=== PATIENT | female | born 1945 | race African-American/Black ===

== ENCOUNTER → 2017-05-03 08:25 | Outpatient (CLI) | payer MEDICARE, BC ==
[2016-04-23 10:03] VITALS: BMI 31.8
[~2017-05-03 08:25] MED LIST: ALEVE220 MG PO; DEMEROL50 MG PO; DITROPAN X5 MG/BOTTL PO; DYAZIDE 37.5/251 CAP PO; ELIQUIS2.5 MG PO; LEVAQUIN250 MG PO; MUPIROCIN22 GM TOPICAL; PERCOCET 10/3251 TA1 PO; ZESTRIL40 MG PO
== END | disposition home or self-care (01) ==
LOC: D.NM 08:25
DX: M25.561 Pain in right knee (principal)

== ENCOUNTER → 2018-12-23 17:12 | Outpatient (CLI) | payer MEDICARE, BC ==
[2016-04-23 10:03] VITALS: BMI 31.8
== END | disposition home or self-care (01) ==
LOC: D.LABREF 17:12
PROVIDERS: ATTEND Orthopaedic Surgery
DX: M25.561 Pain in right knee (principal); Z11.8 Encounter for screening for other infectious and parasitic diseases

== ENCOUNTER 2018-12-24 09:28 | Inpatient (IN) | payer MEDICARE, OTHER ==
[~2018-12-24] VITALS: Ht 167.6 cm; Wt 90.5 kg
[~2018-12-24 09:28] MED LIST changes: +ZESTRIL20 MG PO; -ZESTRIL40 MG PO
[2019-02-03] MEDS ORDERED: NORVASC5 MG PO (15:02)
[2019-02-04 11:24] LABS: APPEARANCE CLEAR (CLEAR); BILIRUBIN NEGATIVE (NEGATIVE); COLOR YELLOW (YELLOW); GLUCOSE NEGATIVE (NEGATIVE); KETONE NEGATIVE (NEGATIVE); NITRITE NEGATIVE (NEGATIVE); PROTEIN NEGATIVE (NEGATIVE); SPECIFIC GRAVITY 1.005 (1.005-1.020); UROBILINOGEN NORMAL (NORMAL)
[2019-02-04 11:26] LABS: BACTERIA MODERATE /hpf (NONE SEEN); EPITHELIAL CELLS OCC /hpf (0-5); MUCUS <1+ /lpf (NONE SEEN); WHITE CELLS - URINE OCC /hpf (0-5)
[2019-02-04 11:33] LABS: BASOPHILS 0.3 % (0-2); EOSINOPHILS 0.8 % (0-7); HEMATOCRIT 41.8 % (36.0-48.0); HEMOGLOBIN 13.9 g/dL (12-16); IMMATURE GRANULOCYTES 0.5 % (0-5); LYMPHOCYTES 32.7 % (15-50); MCH 30.5 pg (26.0-34.0); MCHC 33.3 g/dL (31.0-37.0); MCV 91.7 fL (80.0-100.0); MEAN PLATELET VOLUME 9.9 fL (7.4-10.4); MONOCYTES 9.2 % (2-11); NEUTROPHILS 56.5 % (40-80); PLATELET COUNT 226 10x3/uL (130-400); RBC 4.56 10x6/uL (4.00-5.40); RDW 12.9 % (11.5-14.5); WBC 6.1 10x3/uL (4.8-10.8)
[2019-02-04 11:44] LABS: ANION GAP 9.7 mmol/L (8-16); CALCIUM 10.4 mg/dL (8.5-10.1); CARBON DIOXIDE 30.9 mmol/L (21.0-32.0); CREATININE - SERUM 1.1 mg/dL (0.6-1.3); POTASSIUM - SERUM 3.6 mmol/L (3.5-5.1)
[2019-02-04 11:52] LABS: APTT 28.9 SECONDS (22.8-39.4); INR 0.99 (0.85-1.17); PROTIME 12.6 SECONDS (11.6-15.0)
[2019-02-09 14:35] VITALS: BP 144/82; BMI 323.6
--- NOTE | 2019-02-09 18:19 | NUR ---
REPORT FROM JONATHAN GUTHRIE. PATIENT CARE ASSUMED AT THIS TIME.
--- NOTE | 2019-02-09 19:00 | NUR ---
ADMITED TO ROOM FROM RECOVERY, ALERT AND ORIENTIATED, DORINA WRAP DRESSING INTACT NO DRAINAGE NOTED, ORIENTIATED TO ROOM, SEE ADMISSION ASSESSMENT, CALL LIGHT IN REACH
[2019-02-09 19:01] VITALS: BP 92/57
--- NOTE | 2019-02-09 19:04 | NUR ---
RECEIVBED TO ROOM 2209 VIA BED FROM PACU. A/O X3. DRESSING TO RIGHT KNEE DRY AND INTACT. FAMILY IN ROOM.
[2019-02-09 19:12] VITALS: BP 97/56
[2019-02-09 19:41] VITALS: BP 94/57
[2019-02-09 20:30] VITALS: BP 110/68
[2019-02-09 21:04] VITALS: BP 97/56
[2019-02-10] VITALS (7 sets, daily range): BP systolic 92–114; BP diastolic 51–69; Ht 167.6 cm; Wt 90.5 kg
--- NOTE | 2019-02-10 03:00 | NUR ---
IN AND OUT CATH DONE 800 CC URINE RETURNED, TOLERATED WELL.
[2019-02-10 05:56] LABS: HEMOGLOBIN 12.9 g/dL (12-16); MCH 29.9 pg (26.0-34.0); MCHC 32.3 g/dL (31.0-37.0); MCV 92.8 fL (80.0-100.0); MEAN PLATELET VOLUME 10.6 fL (7.4-10.4); RBC 4.31 10x6/uL (4.00-5.40); RDW 12.7 % (11.5-14.5)
--- NOTE | 2019-02-10 07:58 | NUR ---
AWAKE AND ALERT. ORIENTED X3. NO C/O AT THIS TIME. LUNGS ARE CLEAR BILATERALLY, NO COUGH NOTED. SKIN IS INTACT WITHOUT REDNESS EXCPET INCISION TO RIGHT KNEE WHICH HAS A DRY INTACT DRESSING IN PLACE. SL TO RIGHT FOREARM IS PATETN WITHOUT REDNESS AT INSERTION SITE. DENIES NEEDS. HAVEING SOME INCONTINENCE WITH COUGH AND DEEP BREATHING.
--- NOTE | 2019-02-10 10:04 | NUR ---
UP IN CHAIR AT BEDSIDE. REQUESTED AND GIVEN ONE HYDROCODONE PO FOR C/O LEFT KNEE PAIN LEVEL 7. WILL MONITOR.
--- NOTE | 2019-02-10 11:46 | OP ---
PATIENT NAME: MARCIAL FRAGOSO MEDICAL RECORD: [id number] :[birth year] LOCATION:D.MS [facility] ADMISSION DATE:02/09/19 SURGEON: COREY KWOK MD DATE OF OPERATION: 02/09/2019 PREOPERATIVE DIAGNOSIS: Painful right total knee arthroplasty. POSTOPERATIVE DIAGNOSIS: Painful right total knee arthroplasty. PROCEDURE: Revision total knee arthroplasty. SURGEON: Corey Kwok MD FRAME REPAIRER: Yobani Topete APN INTRAOPERATIVE COMPLICATIONS: None. SUMMARY OF PATHOLOGIC FINDINGS: The knee did seem to be well fixed. There was some questionable lucency about the tibial component. This was placed in 2015. OPERATIVE SUMMARY IN DETAIL: After obtaining the appropriate preoperative orthopedic surgery consent as well as anesthetic consultation, evaluation and clearance, the patient was brought to the operating room and placed on the operating table in supine position. After adequate general laryngeal mask airway was administered, tourniquet was placed on the proximal aspect of the right lower extremity. Right lower extremity was then prepped and draped in routine sterile fashion. The leg was elevated and exsanguinated, tourniquet was inflated to 350 mmHg. Midline incision was taken to the previous incision, taken down for paramedian arthrotomy. The patella was subluxed to the side. The femur was then flexed. Polyethylene was removed with little degree of difficulty. The femur was checked and found to be in overall good condition when it was removed. No bone was taken from the distal and there was no evidence whatsoever of infection. Attention then turned to the proximal tibia. It likewise was removed relatively easy using a saw as well as flexible osteotomes from the greater revision. The bone ends exposed. Serial and sequential reaming was done at the proximal femur. A size 18 stem fluted, cuts were made along with the box cut. Appropriate measurements were taken and the trial corresponding to the final implants was placed on the distal femur. It fit nicely, anterior, posterior, laterally, as well as intramedullary. The proximal tibia was exposed and likewise serial and sequential reaming were done for proximal tibia. Stem 17 x 100, size 4 universal tibial baseplate was placed. Please note that either femoral or tibial stem needed offset. Trial was put into place and it was felt that a size 16 mm was the most appropriate for stabilization. Trial implants were taken out. Copious lavage irrigation was done through ridding the knee cavity of all debris. The implants were built on the back table. The femur and tibia were inserted into place. All excess cement was removed and the polyethylene was put into place. The knee was taken through a range of motion and found to have slight patellar subluxation lateral release was performed and the patella tracked nicely. The knee was then insufflated with a gram of vancomycin, a gram and tobramycin. Paramedian arthrotomy was closed by Yobani Planzo with #2-0 Ethibond in irards-jv-asruh fashion followed by #1 Vicryl, 2-0 Vicryl, and skin amada. Sterile dressings were applied. The tourniquet was deflated. The patient was awakened, taken to recovery in stable condition. All final needle and sponge counts were correct. OPERATIVE REPORT [id number] MARCIAL FRAGOSO TRANSINT:[id number] Voice Confirmation ID: [id number] DOCUMENT ID: [id number] RISSA MCCORMICK, COREY FERREIRA at 1146 CC: [id number] DICTATION DATE: 02/09/19 171 APARTMENT MAINTENANCE TECHNICIAN: 02/09/191950 ADM IN [facility] [address] [place] [address]
[2019-02-10 17:02] LABS: HEMATOCRIT 32.8 % (36.0-48.0); HEMOGLOBIN 10.6 g/dL (12-16)
--- NOTE | 2019-02-10 19:22 | NUR ---
BP IS SLOWLY COMMING UP. NO CHANGES NOTED. DENEIES NEEDS.
--- NOTE | 2019-02-10 20:00 | NUR ---
ALERT RRESTING IN BED DENIES PAIN, DORINA WRAP DRESSING INTACT TO RIGH TKNEE NO DRAINAGE NOTED, SEE SHIFT ASSESSMENT, CALL LIGHT IN REACH
[2019-02-11 02:13] VITALS: BP 129/70
[2019-02-11 04:50] VITALS: BP 128/69
[2019-02-11 05:27] LABS: HEMATOCRIT 30.6 % (36.0-48.0); MCH 29.6 pg (26.0-34.0); MCHC 32.7 g/dL (31.0-37.0); MEAN PLATELET VOLUME 10.6 fL (7.4-10.4); RDW 12.9 % (11.5-14.5)
[2019-02-11 05:45] LABS: MCV 90.5 fL (80.0-100.0); RBC 3.38 10x6/uL (4.00-5.40)
[2019-02-11 08:48] VITALS: BP 144/84
--- NOTE | 2019-02-11 09:41 | MORECARE ---
CASE MANAGEMENT DISCHARGE SUMMARY PATIENT: MARCIAL FRAGOSO UNIT: [id number] ADM DATE: 02/09/19 AGE: 73 : [birth year] SEX: F ROOM/BED: D.4451 AUTHOR: DALIA AGRAWAL PHYSICIAN: REFERRING PHYSICIAN: COREY KWOK MD DATE OF SERVICE: 02/11/19 Discharge Plan Patient Name: MARCIAL FRAGOSO Facility: [facility]:[place] : 1945 Planned Disposition: Home with Home Health Anticipated Discharge Date: Discharge Date: Expected LOS: Initial Reviewer: [email or web address] Initial Review Date: 02/09/2019 Generated: 02/11/19 10:40 am Comments DCP- Discharge Planning Updated by [email or web address]: Katey Hopper on 02/11/19 8:[address] Patient Name: MARCIAL FRAGOSO Admission Status: Elective Accout number: [id number] Admission Date: 02-09-2019 : 1945 Admission Diagnosis: Attending: COREY KWOK Current LOS: 2 Anticipated DC Date: Planned Disposition: Home with Home Health Primary Insurance: MEDICARE A & B Discharge Planning Comments: CM met with patient to complete initial dc planning assessment. CM educated patient on the CM role and verbal consent given by patient to complete assessment. Patient lives at home where she is independent with her care at home. At discharge patient plans to return home and feels this is a safe discharge. Her daughter will be her driver license technician home and will be staying with her for a while during her recovery. CM discussed availability of home health, rehab services, and medical equipment. She has a walker, BSC, and shower chair at home. She would like home health and KERRY signed with [facility] & placed in chart. IMM also explained and placed in chart. Patient denied known discharge needs at this time. CM will continue to follow and will assist as needed with dc plans/needs. Sourcing Assistant: Katey Hopper DCPIA - Discharge Planning Initial Assessment Updated by [email or web address]: Katey Hopper on 02/11/19 9:38 am * Is the patient Alert and Oriented? Yes * How many steps to enter\exit or inside your home? ramp * PCP Álvaro * [facility] in [place] * Preadmission Environment Home Alone * ADLs Independent * Equipment Bedside Commode Rolling Walker Walker * List name and contact numbers for known caregivers / representatives who currently or will assist patient after discharge: Micheline Jospeh [phone] * Verbal permission to speak to the caregivers and representatives has been obtained from the patient. N/A * Community resources currently utilized None * Additional services required to return to the preadmission environment? Yes * Can the patient safely return to the preadmission environment? Yes * Has this patient been hospitalized within the prior 30 days at any hospital? No Patient Name: MARCIAL FRAGOSO Page [phone] at 0941 All edits/amendments must be made on the electronic document DICTATION DATE: 02/11/19939 DREDGE DECKHAND: YAMILKA 02/11/19939 RPT#: [id number] DC DATE: STATUS: ADM IN [facility] [address] [place] [address] END OF REPORT
[2019-02-11 11:50] LABS: APPEARANCE CLEAR (CLEAR); COLOR STRAW (YELLOW)
[2019-02-11 11:51] LABS: BACTERIA FEW /hpf (NONE SEEN); BILIRUBIN NEGATIVE (NEGATIVE); EPITHELIAL CELLS 0-5 /hpf (0-5); GLUCOSE NEGATIVE (NEGATIVE); KETONE NEGATIVE (NEGATIVE); MUCUS <1+ /lpf (NONE SEEN); NITRITE NEGATIVE (NEGATIVE); PROTEIN NEGATIVE (NEGATIVE); RED CELLS - URINE OCC /hpf (0-5); UROBILINOGEN NORMAL (NORMAL)
[2019-02-11 12:23] VITALS: BP 136/84
--- NOTE | 2019-02-11 13:49 | MORECARE ---
CASE MANAGEMENT DISCHARGE SUMMARY PATIENT: MARCIAL FRAGOSO UNIT: [id number] ADM DATE: 02/09/19 AGE: 73 : 47 SEX: F ROOM/BED: D.3831 AUTHOR: DALIA AGRAWAL PHYSICIAN: REFERRING PHYSICIAN: COREY KWOK MD DATE OF SERVICE: 02/11/19 Discharge Plan Patient Name: MARCIAL FRAGOSO Facility: [facility]:[place] : 1945 Planned Disposition: Home with Home Health Anticipated Discharge Date: Discharge Date: Expected LOS: Initial Reviewer: [email or web address] Initial Review Date: 02/09/2019 Generated: 02/11/19 2:49 pm Comments DCP- Discharge Planning Updated by [email or web address]: Katey Hopper on 02/11/19 8:[address] Patient Name: MARCIAL FRAGOSO Admission Status: Elective Accout number: [id number] Admission Date: 02-09-2019 : 1945 Admission Diagnosis: Attending: COREY KWOK Current LOS: 2 Anticipated DC Date: Planned Disposition: Home with Home Health Primary Insurance: MEDICARE A & B Discharge Planning Comments: CM met with patient to complete initial dc planning assessment. CM educated patient on the CM role and verbal consent given by patient to complete assessment. Patient lives at home where she is independent with her care at home. At discharge patient plans to return home and feels this is a safe discharge. Her daughter will be her jinriksha driver home and will be staying with her for a while during her recovery. CM discussed availability of home health, rehab services, and medical equipment. She has a walker, BSC, and shower chair at home. She would like home health and KERRY signed with [facility] & placed in chart. IMM also explained and placed in chart. Patient denied known discharge needs at this time. CM will continue to follow and will assist as needed with dc plans/needs. Buttonhole Machine Operator: Katey Hopper DCPIA - Discharge Planning Initial Assessment Updated by [email or web address]: Katey Hopper on 02/11/19 9:38 am * Is the patient Alert and Oriented? Yes * How many steps to enter\exit or inside your home? ramp * PCP Álvaro * Pharm[facility] in [place] * Preadmission Environment Home Alone * ADLs Independent * Equipment Bedside Commode Rolling Walker Walker * List name and contact numbers for known caregivers / representatives who currently or will assist patient after discharge: Micheline Joseph [phone] * Verbal permission to speak to the caregivers and representatives has been obtained from the patient. N/A * Community resources currently utilized None * Additional services required to return to the preadmission environment? Yes * Can the patient safely return to the preadmission environment? Yes * Has this patient been hospitalized within the prior 30 days at any hospital? No External Providers External Provider: [facility] Next Contact Date: Service Request Date: Service Type: Resolution: Reviewer: Comments: Coverage Notice Reviewer: [email or web address] Sarah Hopper Notice Issued Date-Time: 02/11/2019 8:00 Notice Type: IM Discharge Notice Notice Delivered To: Patient Relationship to Patient: Substation Wireman Name: Delivery Method: HAND - Hand Delivered Flor Days: Prior Verbal Notification: Recipient Understood Notice: Yes Recipient Signature: Yes Med Rec Note Co-signed by Attending: Coverage Notice Comment: Reviewer: [id number] Hopper Notice Issued Date-Time: 02/11/2019 8:00 Notice Type: Patient Choice Letter Notice Delivered To: Patient Relationship to Patient: Substation Wireman Name: Delivery Method: - Flor Days: Prior Verbal Notification: Recipient Understood Notice: Yes Recipient Signature: Yes Med Rec Note Co-signed by Attending: Coverage Notice Comment: Last DP export: 02/11/19 8:40 am Patient Name: MARCIAL FRAGOSO Page [phone] at 1349 All edits/amendments must be made on the electronic document DICTATION DATE: 02/11/19 1349 BILINGUAL INTERPRETER: YAMILKA 02/11/19 1349 RPT#: [id number] DC DATE: STATUS: ADM IN [facility] [address] [place] [address] END OF REPORT
[2019-02-11 16:45] VITALS: BP 116/94
--- NOTE | 2019-02-11 16:59 | NUR ---
PATIENT RESTING IN CHAIR. DENIES NEEDS. CL AND PHONE IN REACH. WCTM
--- NOTE | 2019-02-11 20:00 | NUR ---
ASSESSMENT PER FLOWSHEET. DRESSING TO RT KNEE C/D/I. IV PATENT RT FOREARM OF 1/2NS AT 30CC'S/HR. SITE CLEAR. O2 ON 2L/M PER NC. NO DISTESS. SITTING UP IN RECLINER CHAIR.
[2019-02-11 21:27] VITALS: BP 119/75
--- NOTE | 2019-02-11 22:00 | NUR ---
TRANSFERED TO BED SR UP X2 CALL LIGHT WITHIN REACH.
--- NOTE | 2019-02-12 | NUR ---
REMAINS AWAKE WATCHING TV. DENIES NEEDS AT THIS TIME.
--- NOTE | 2019-02-12 01:18 | NUR ---
C/O PAIN INCISIONAL AREA. RATES PAIN LEVEL #7. NORCO 10MG TAB ONE PO GIVEN FOR PAIN CONTROL.
[2019-02-12 02:05] VITALS: BP 139/85
[2019-02-12 06:17] VITALS: BP 124/60
[2019-02-12] MEDS ORDERED: ELIQUIS2.5 MG PO (07:52)
[2019-02-12] MEDS ORDERED: HYDROCODON-ACE1 EA10 PO (07:53)
[2019-02-12] MEDS ORDERED: LEVOFLOXACIN500 MG PO (07:54)
[2019-02-12 10:08] VITALS: BP 103/70
--- NOTE | 2019-02-12 12:36 | NUR ---
PATIENT WAS ASKED TWICE BY OPHELIA NARAYANAN IF SHE WANTED A SHOWER. SHE REFUSED BOTH TIMES. PATIENT SAID SHE WAS WAITING ON DISCHARGE PAPERWORK AND TO GO HOME.
--- NOTE | 2019-02-12 13:08 | MORECARE ---
CASE MANAGEMENT DISCHARGE SUMMARY PATIENT: MARCIAL FRAGOSO UNIT: [id number] ADM DATE: 02/09/19 AGE: 73 : [birth year] SEX: F ROOM/BED: D.6539 AUTHOR: DALIA AGRAWAL PHYSICIAN: REFERRING PHYSICIAN: COREY KWOK MD DATE OF SERVICE: 02/12/19 Discharge Plan Patient Name: MARCIAL FRAGOSO Facility: [facility]:[place] : 1945 Planned Disposition: Home with Home Health Anticipated Discharge Date: 02/12/19 Discharge Date: Expected LOS: 3 Initial Reviewer: [email or web address] Initial Review Date: 02/09/2019 Generated: 02/12/19 2:08 pm Comments DCP- Discharge Planning Updated by [email or web address]: Katey Hopper on 02/11/19 8:[address] Patient Name: MARCIAL FRAGOSO Admission Status: Elective Accout number: [id number] Admission Date: 02-09-2019 : 1945 Admission Diagnosis: Attending: COREY KWOK Current LOS: 2 Anticipated DC Date: Planned Disposition: Home with Home Health Primary Insurance: MEDICARE A & B Discharge Planning Comments: CM met with patient to complete initial dc planning assessment. CM educated patient on the CM role and verbal consent given by patient to complete assessment. Patient lives at home where she is independent with her care at home. At discharge patient plans to return home and feels this is a safe discharge. Her daughter will be her dedicated local truck driver home and will be staying with her for a while during her recovery. CM discussed availability of home health, rehab services, and medical equipment. She has a walker, BSC, and shower chair at home. She would like home health and KERRY signed with [facility] & placed in chart. IMM also explained and placed in chart. Patient denied known discharge needs at this time. CM will continue to follow and will assist as needed with dc plans/needs. Fire Loss Prevention Engineer: Katey Hopper DCPIA - Discharge Planning Initial Assessment Updated by [email or web address]: Katey Hopper on 02/11/19 9:38 am * Is the patient Alert and Oriented? Yes * How many steps to enter\exit or inside your home? ramp * PCP Álvaro * Pharm[facility] in [place] * Preadmission Environment Home Alone * ADLs Independent * Equipment Bedside Commode Rolling Walker Walker * List name and contact numbers for known caregivers / representatives who currently or will assist patient after discharge: Micheline Joseph [phone] * Verbal permission to speak to the caregivers and representatives has been obtained from the patient. N/A * Community resources currently utilized None * Additional services required to return to the preadmission environment? Yes * Can the patient safely return to the preadmission environment? Yes * Has this patient been hospitalized within the prior 30 days at any hospital? No Coverage Notice Reviewer: [id number] Sarah Hopper Notice Issued Date-Time: 02/11/2019 8:00 Notice Type: IM Discharge Notice Notice Delivered To: Patient Relationship to Patient: An/Syq 13 Nav/C2 Operator Name: Delivery Method: HAND - Hand Delivered Flor Days: Prior Verbal Notification: Recipient Understood Notice: Yes Recipient Signature: Yes Med Rec Note Co-signed by Attending: Coverage Notice Comment: Reviewer: [id number] Sarah Hopper Notice Issued Date-Time: 02/11/2019 8:00 Notice Type: Patient Choice Letter Notice Delivered To: Patient Relationship to Patient: An/Syq 13 Nav/C2 Operator Name: Delivery Method: - Flor Days: Prior Verbal Notification: Recipient Understood Notice: Yes Recipient Signature: Yes Med Rec Note Co-signed by Attending: Coverage Notice Comment: Last DP export: 02/11/19 12:49 pm Patient Name: MARCIAL FRAGOSO Page [phone] at 1308 All edits/amendments must be made on the electronic document DICTATION DATE: 02/12/19 1308 INTEGRATION CONSULTANT: YAMILKA 02/12/19 1308 RPT#: [id number] DC DATE: STATUS: ADM IN [facility] [address] [place] [address] END OF REPORT
--- NOTE | 2019-02-12 13:11 | NUR ---
IV THERAPY DC'ED WITH TIP INTACT. PATIENT AND FAMILY VERBALIZED UNDERSTANDING OF DISCHARGE INSTRUCTIONS. PATIENT WAITING ON A WALKER FROM [facility] BEFORE LEAVING. DRESSING CHANGED WITH EXTRA GIVEN.
--- NOTE | 2019-02-12 13:15 | NUR ---
OT NOTE: PT PERFORMED WELL TODAY; AMB TO BATHROOM WITH RW AND MIN ASSIST; TOILETING WITH MIN ASSIST; SINK HYGIENE WITH MIN ASSIST; REQUIRED MOD ASSIST FOR SOCKS AND SHOES; REMAINDER OF DRESSING WITH SET UP. BABAR CAPPS, OTR/L
--- NOTE | 2019-02-12 13:17 | MORECARE ---
CASE MANAGEMENT DISCHARGE SUMMARY PATIENT: MARCIAL FRAGOSO UNIT: [id number] ADM DATE: 02/09/19 AGE: 73 : [birth year] SEX: F ROOM/BED: D.2201 AUTHOR: TANJA,DALIA PHYSICIAN: REFERRING PHYSICIAN: COREY KWOK MD DATE OF SERVICE: 02/12/19 Discharge Plan Patient Name: MARCIAL FRAGOSO Facility: [facility]:[place] : 1945 Planned Disposition: Home with Home Health Anticipated Discharge Date: 02/12/19 Discharge Date: Expected LOS: 3 Initial Reviewer: [email or web address] Initial Review Date: 02/09/2019 Generated: 02/12/19 2:17 pm Comments DCP- Discharge Planning Updated by [id number]: Frannie Henning on 02/12/19 12:[address] LATE ENTRY 0910 PHYSICAL THERAPY ADVISED CM THAT THE PATIENT'S WALKER IS NOT SAFE. HE ADVISED THE PATIENT THAT A NEW WALKER SHOULD BE OBTAINED. CM SPOKE WITH THE PATIENT. SHE STATED THE WALKER HAD BEEN HER 'S. SHE IS IN AGREEMENT W/ ORDERING A NEW ONE. MD ORDER OBTAINED. SHE WANTED TO USE THE DME PROVIDER NEAR HER HOME. SHE ASK CM TO CALL THE HOME HEALTH PROVIDER AND ASK THE NAME. RICARDO CALLED [facility] IN [place]. THE NURSE STATED SERVICE SECRETARY HAD CLOSED. SHE ADVISED [facility] IN [place] WAS CLOSEST PROVIDER. CM ADVISED THE PATIENT SHE AGREED W/ [facility] SERVICE SECRETARY HAD CLOSED. POC FORM OBTAINED FOR [facility]. [facility] [place] SHE WOULD NEED IT TO ENTER HER HOME.FAXED REFERRAL. [facility] CALLED AND SPOKE WITH THE PATIENT. AWAIT DELIVERY. WILL FAX [facility] THE DISCHARGE SUMMARY. DCP- Discharge Planning Updated by [id number]: Ktaey Hopper on 02/11/19 8:[address] Patient Name: MARCIAL FRAGOSO Admission Status: Elective Accout number: [id number] Admission Date: 02-09-2019 : 1945 Admission Diagnosis: Attending: COREY KWOK Current LOS: 2 Anticipated DC Date: Planned Disposition: Home with Home Health Primary Insurance: MEDICARE A & B Discharge Planning Comments: CM met with patient to complete initial dc planning assessment. CM educated patient on the CM role and verbal consent given by patient to complete assessment. Patient lives at home where she is independent with her care at home. At discharge patient plans to return home and feels this is a safe discharge. Her daughter will be her package delivery driver home and will be staying with her for a while during her recovery. CM discussed availability of home health, rehab services, and medical equipment. She has a walker, BSC, and shower chair at home. She would like home health and KERRY signed with [facility] & placed in chart. IMM also explained and placed in chart. Patient denied known discharge needs at this time. CM will continue to follow and will assist as needed with dc plans/needs. Medical Research Associate: Katey Hopper DCPIA - Discharge Planning Initial Assessment Updated by [email or web address]: Katey Hopper on 02/11/19 9:38 am * Is the patient Alert and Oriented? Yes * How many steps to enter\exit or inside your home? ramp * PCP Álvaro * Pharmacy [facility] in [place] * Preadmission Environment Home Alone * ADLs Independent * Equipment Bedside Commode Rolling Walker Walker * List name and contact numbers for known caregivers / representatives who currently or will assist patient after discharge: Micheline Joseph [phone] * Verbal permission to speak to the caregivers and representatives has been obtained from the patient. N/A * Community resources currently utilized None * Additional services required to return to the preadmission environment? Yes * Can the patient safely return to the preadmission environment? Yes * Has this patient been hospitalized within the prior 30 days at any hospital? No Coverage Notice Reviewer: [id number] Sarah Hopper Notice Issued Date-Time: 02/11/2019 8:00 Notice Type: IM Discharge Notice Notice Delivered To: Patient Relationship to Patient: Occupational Psychologist Name: Delivery Method: HAND - Hand Delivered Flor Days: Prior Verbal Notification: Recipient Understood Notice: Yes Recipient Signature: Yes Med Rec Note Co-signed by Attending: Coverage Notice Comment: Reviewer: [id number] Sarah Hopper Notice Issued Date-Time: 02/11/2019 8:00 Notice Type: Patient Choice Letter Notice Delivered To: Patient Relationship to Patient: Occupational Psychologist Name: Delivery Method: - Flor Days: Prior Verbal Notification: Recipient Understood Notice: Yes Recipient Signature: Yes Med Rec Note Co-signed by Attending: Coverage Notice Comment: Last DP export: 02/12/19 12:08 pm Patient Name: MARCIAL FRAGOSO Page 28902 at 1317 All edits/amendments must be made on the electronic document DICTATION DATE: 02/12/191315 PLANNING INTERN: YAMILKA 02/12/191315 RPT#: [id number] DC DATE: STATUS: ADM IN [facility] [address] [place] [address] END OF REPORT
--- NOTE | 2019-02-12 16:24 | NUR ---
OT NOTE: PT COMPLETED ADL MOB AND EOB SITTING WITH CGA. PT COMPLETED SIMPLE HYGIENE TASKS WITH MIN A. THANK YOU, SHAHID DUMONT
--- NOTE | 2019-02-12 16:54 | MORECARE ---
CASE MANAGEMENT DISCHARGE SUMMARY PATIENT: MARCIAL FRAGOSO UNIT: [id number] ADM DATE: 02/09/19 AGE: 73 : 49 SEX: F ROOM/BED: D.8047 AUTHOR: TANJA,DOC PHYSICIAN: REFERRING PHYSICIAN: COREY KWOK MD DATE OF SERVICE: 02/12/19 Discharge Plan Patient Name: MARCIAL FRAGOSO Facility: [facility]:[place] : 1945 Planned Disposition: Home with Home Health Anticipated Discharge Date: 02/12/19 Discharge Date: 02/12/2019 Expected LOS: 3 Initial Reviewer: [email or web address] Initial Review Date: 02/09/2019 Generated: 02/12/19 5:54 pm Comments DCP- Discharge Planning Updated by [email or web address]: Frannie Henning on 02/12/19 3:[address] DISCHARGE ORDERS, DISCHARGE INSTRUCTIONS AND DISCHARGE MED LIST FAXED TO [facility]. DCP- Discharge Planning Updated by [email or web address]: Frannie Henning on 02/12/19 12:[address] LATE ENTRY 0910 PHYSICAL THERAPY ADVISED CM THAT THE PATIENT'S WALKER IS NOT SAFE. HE ADVISED THE PATIENT THAT A NEW WALKER SHOULD BE OBTAINED. RICARDO SPOKE WITH THE PATIENT. SHE STATED THE WALKER HAD BEEN HER 'S. SHE IS IN AGREEMENT W/ ORDERING A NEW ONE. MD ORDER OBTAINED. SHE WANTED TO USE THE DME PROVIDER NEAR HER HOME. SHE ASK CM TO CALL THE HOME HEALTH PROVIDER AND ASK THE NAME. RICARDO CALLED [facility] IN [place]. THE NURSE STATED [facility] HAD CLOSED. SHE ADVISED [facility] IN [place] WAS CLOSEST PROVIDER. RICARDO ADVISED THE PATIENT SHE AGREED W/ [facility] [facility] HAD CLOSED. POC FORM OBTAINED FOR [facility]. TC TO [facility] IN [place] SHE WOULD NEED IT TO ENTER HER HOME.FAXED REFERRAL. [facility] CALLED AND SPOKE WITH THE PATIENT. AWAIT DELIVERY. WILL FAX [facility] THE DISCHARGE SUMMARY. DCP- Discharge Planning Updated by [id number]: Katey Hopper on 02/11/19 8:[address] Patient Name: MARCIAL FRAGOSO Admission Status: Elective Accout number: [id number] Admission Date: 02-09-2019 : 1945 Admission Diagnosis: Attending: COREY KWOK Current LOS: 2 Anticipated DC Date: Planned Disposition: Home with Home Health Primary Insurance: MEDICARE A & B Discharge Planning Comments: CM met with patient to complete initial dc planning assessment. CM educated patient on the CM role and verbal consent given by patient to complete assessment. Patient lives at home where she is independent with her care at home. At discharge patient plans to return home and feels this is a safe discharge. Her daughter will be her stunt driver home and will be staying with her for a while during her recovery. CM discussed availability of home health, rehab services, and medical equipment. She has a walker, BSC, and shower chair at home. She would like home health and KERRY signed with [facility] & placed in chart. IMM also explained and placed in chart. Patient denied known discharge needs at this time. CM will continue to follow and will assist as needed with dc plans/needs. Community Development Officer: Katey Hopper DCPIA - Discharge Planning Initial Assessment Updated by [email or web address]: Katey Hopper on 02/11/19 9:38 am * Is the patient Alert and Oriented? Yes * How many steps to enter\exit or inside your home? ramp * PCP Álvaro * Pharmacy [facility] in [place] * Preadmission Environment Home Alone * ADLs Independent * Equipment Bedside Commode Rolling Walker Walker * List name and contact numbers for known caregivers / representatives who currently or will assist patient after discharge: Micheline Joseph [phone] * Verbal permission to speak to the caregivers and representatives has been obtained from the patient. N/A * Community resources currently utilized None * Additional services required to return to the preadmission environment? Yes * Can the patient safely return to the preadmission environment? Yes * Has this patient been hospitalized within the prior 30 days at any hospital? No Coverage Notice Reviewer: [id number] Sarah Hopper Notice Issued Date-Time: 02/11/2019 8:00 Notice Type: IM Discharge Notice Notice Delivered To: Patient Relationship to Patient: Landscape Contractor Name: Delivery Method: HAND - Hand Delivered Flor Days: Prior Verbal Notification: Recipient Understood Notice: Yes Recipient Signature: Yes Med Rec Note Co-signed by Attending: Coverage Notice Comment: Reviewer: [email or web address] Sarah Hopper Notice Issued Date-Time: 02/11/2019 8:00 Notice Type: Patient Choice Letter Notice Delivered To: Patient Relationship to Patient: Landscape Contractor Name: Delivery Method: - Flor Days: Prior Verbal Notification: Recipient Understood Notice: Yes Recipient Signature: Yes Med Rec Note Co-signed by Attending: Coverage Notice Comment: Last DP export: 02/12/19 12:17 pm Patient Name: MARCIAL FRAGOSO Page [id number] at [id number] All edits/amendments must be made on the electronic document DICTATION DATE: 02/12/191652 LOTTERY CLERK: YAMILKA 02/12/191652 RPT#: [id number] DC DATE:02/12/19 STATUS: DIS [facility] [address] [place] [address] END OF REPORT
== END 2019-02-12 14:10 | disposition home health service (06) | DRG 468 ==
LOC: D.SDCHOLD 02-04 10:00 → D.MS 02-09 10:15 → D.SDCHOLD 02-09 11:00 → D.MS 02-09 18:43
PROVIDERS: ADMIT Orthopaedic Surgery; ATTEND Orthopaedic Surgery
PROC: 0SRV0J9 Replacement of Right Knee Joint, Tibial Surface with Synthetic Substitute, Cemented, Open Approach (ICD-10-PCS; 2019-02-09)
PROC: 0SPV0JZ Removal of Synthetic Substitute from Right Knee Joint, Tibial Surface, Open Approach (ICD-10-PCS; principal; 2019-02-09 12:45)
DX: T84.84XA Pain due to internal orthopedic prosthetic devices, implants and grafts, initial encounter (principal); I10 Essential (primary) hypertension